=== PATIENT | male | born 1980 | race Caucasian/White ===

== ENCOUNTER 2022-07-08 19:53 | Emergency (ER) | payer OTHER ==
[~2022-07-08 19:53] MED LIST: ASPIRIN EC81 MG PO; NORCO 5-325 TA1 EACH PO; PRILOSEC20 MG PO; PRINIVIL20 MG PO; TOPROL XL 25MG25 MG PO
[2022-07-08] MEDS ORDERED: KEFLEX250 MG PO (23:14)
== END 2022-07-08 23:55 | disposition home or self-care (01) ==
LOC: FER 19:53
DX: S61.411A Laceration without foreign body of right hand, initial encounter (principal); E11.9 Type 2 diabetes mellitus without complications; I10 Essential (primary) hypertension; X58.XXXA Exposure to other specified factors, initial encounter; Y92.009 Unspecified place in unspecified non-institutional (private) residence as the place of occurrence of the external cause
CPT/HCPCS: 73130